=== PATIENT | female | born 1985 ===

== ENCOUNTER 2018-10-20 03:21 | Emergency (ER) | payer OTHER ==
[~2018-10-20] VITALS: Ht 165.1 cm; Wt 100.7 kg
[2018-10-20] MEDS ORDERED: ZYRTEC10 M3 (03:33)
[2018-10-21] MEDS ORDERED: ASPIR 8181 MG (17:27)
== END 2018-10-20 07:19 ==
LOC: ER 03:21
DX: S73.192A Other sprain of left hip, initial encounter (principal); X58.XXXA Exposure to other specified factors, initial encounter; Y93.89 Activity, other specified; Y92.89 Other specified places as the place of occurrence of the external cause; Y99.8 Other external cause status; R10.32 Left lower quadrant pain

== ENCOUNTER 2018-10-21 17:02 | Inpatient (IN) | payer OTHER ==
[~2018-10-21] VITALS: Ht 165.1 cm; Wt 100.7 kg
[~2018-10-21 17:02] MED LIST: ZYRTEC10 M3
[2018-10-21] MEDS ORDERED: ASPIR 8181 MG (17:27)
== END 2018-10-30 15:12 | disposition home or self-care (01) | DRG 832 ==
LOC: ER 17:02 → OB/GYN 10-22 08:33
PROVIDERS: ADMIT Obstetrics & Gynecology
PROC: 4A1HXCZ Monitoring of Products of Conception, Cardiac Rate, External Approach (ICD-10-PCS; principal; 2018-10-22)
PROC: BY4FZZZ Ultrasonography of Third Trimester, Single Fetus (ICD-10-PCS; 2018-10-22)
PROC: B54CZZZ Ultrasonography of Left Lower Extremity Veins (ICD-10-PCS; 2018-10-22)
DX: O22.33 Deep phlebothrombosis in pregnancy, third trimester (principal); I82.412 Acute embolism and thrombosis of left femoral vein; I82.422 Acute embolism and thrombosis of left iliac vein; I82.432 Acute embolism and thrombosis of left popliteal vein; O99.013 Anemia complicating pregnancy, third trimester; D64.89 Other specified anemias; O09.523 Supervision of elderly multigravida, third trimester

== ENCOUNTER → 2018-11-19 | Outpatient (CLI) | payer OTHER ==
[~2018-11-19] MED LIST changes: +ASPIR 8181 MG
== END | disposition home or self-care (01) ==
LOC: PRENATAL 10:00
DX: O26.843 Uterine size-date discrepancy, third trimester (principal); O36.63X1 Maternal care for excessive fetal growth, third trimester, fetus 1; O99.89 Other specified diseases and conditions complicating pregnancy, childbirth and the puerperium; O09.513 Supervision of elderly primigravida, third trimester

== ENCOUNTER 2018-12-17 20:39 | Inpatient (IN) | payer OTHER ==
[~2018-12-17] VITALS: Ht 165.1 cm; Wt 3.6 kg
[2018-12-17] MEDS ORDERED: PRENATAL CAPLE1 EAC1 PO (22:04)
[2018-12-17] MEDS ORDERED: LOVENOX80 MG/0.8 SUBCUTANEO (22:05)
== END 2018-12-21 16:54 | disposition home or self-care (01) | DRG 788 ==
LOC: LDR 20:39 → OB/GYN 12-19 00:31
PROVIDERS: ADMIT Obstetrics & Gynecology
PROC: 3E0P7VZ Introduction of Hormone into Female Reproductive, Via Natural or Artificial Opening (ICD-10-PCS; 2018-12-17)
PROC: 4A1HXCZ Monitoring of Products of Conception, Cardiac Rate, External Approach (ICD-10-PCS; 2018-12-17)
PROC: 3E033VJ Introduction of Other Hormone into Peripheral Vein, Percutaneous Approach (ICD-10-PCS; 2018-12-18)
PROC: 10D00Z1 Extraction of Products of Conception, Low, Open Approach (ICD-10-PCS; principal; 2018-12-18 20:00)
DX: O82 Encounter for cesarean delivery without indication (principal); O61.0 Failed medical induction of labor; Z3A.38 38 weeks gestation of pregnancy; Z37.0 Single live birth

== ENCOUNTER 2019-03-05 13:33 | Outpatient (CLI) | payer OTHER ==
[~2019-03-05 13:33] MED LIST changes: +LOVENOX80 MG/0.8 SUBCUTANEO; +PRENATAL CAPLE1 EAC1 PO
== END 2019-03-05 13:42 | disposition home or self-care (01) ==
LOC: NUCLEAR 13:33
DX: I82.422 Acute embolism and thrombosis of left iliac vein (principal)

== ENCOUNTER → 2019-06-27 | Outpatient (CLI) | payer OTHER | END | disposition home or self-care (01) | LOC: NUCLEAR 11:06 | DX: I82.422 Acute embolism and thrombosis of left iliac vein (principal); I87.2 Venous insufficiency (chronic) (peripheral) ==